=== PATIENT | male | born 1955 | race Caucasian/White ===

== ENCOUNTER 2021-01-10 12:15 | Inpatient (IN) ==
[2021-01-10 15:39] LABS: ABS Monocytes 0.3 10^3/ul (0-0.8); ABS Neutrophils 8.2 10^3/ul (1.5-7.7); Eosinophil % 0.2 %; Hematocrit 48 % (42-52); Hemoglobin 16.9 g/dL (14.0-18.0); Mean Corpuscular HGB Conc 36 g/dL (31-36); Mean Corpuscular Hemoglobin 32 pg (27-31); Mean Corpuscular Volume 91 fL (80-94); Mean Platelet Volume 8.4 fL (7.4-10.4); Platelet Count 289 10^3/uL (150-450); Red Blood Count 5.26 10^6 /uL (4.18-5.48); Red Cell Distribution Width 12 % (10-15); White Blood Count 9.5 10^3/uL (3.5-10.8)
[2021-01-10 15:59] LABS: ALT 18 U/L (7-52); AST 21 U/L (13-39); Albumin/Globulin Ratio 1.3 (1-3); Alkaline Phosphatase 66 U/L (35-149); Anion Gap 10 mmol/L (2-11); Blood Urea Nitrogen 20 mg/dL (6-24); CO2 Carbon Dioxide 25 mmol/L (22-32); Calcium 10.6 mg/dL (8.6-10.3); Chloride 101 mmol/L (101-111); Glucose 97 mg/dL (70-100); Potassium 4.2 mmol/L (3.5-5.0); Sodium 136 mmol/L (135-145)
[2021-01-10 16:04] LABS: Troponin I 0.08 ng/mL (<0.03)
[2021-01-10] MEDS ORDERED: Iohexol 350 (CONTRAST) 500 ML MDV IV ONE (16:43)
[2021-01-10 16:50] LABS: Rapid COVID-19 Molecular Undetected (Undetected)
[2021-01-10] MEDS ORDERED: Enoxaparin 80 MG/0.8 ML SYR SUBCUT ONE (17:24)
[2021-01-10 19:33] LABS: Activated Partial Thrombo Time 30.8 seconds (26.0-38.0); INR 1.12 (0.86-1.15)
[2021-01-11 06:52] LABS: Anion Gap 12 mmol/L (2-11); Blood Urea Nitrogen 18 mg/dL (6-24); CO2 Carbon Dioxide 23 mmol/L (22-32); Calcium 9.7 mg/dL (8.6-10.3); Chloride 104 mmol/L (101-111); Glucose 87 mg/dL (70-100); Potassium 4.3 mmol/L (3.5-5.0); Sodium 139 mmol/L (135-145)
[2021-01-11 08:13] LABS: Troponin I 0.06 ng/mL (<0.03)
[2021-01-12 11:28] VITALS: BP 138/92
== END 2021-01-12 12:45 | disposition home or self-care (01) | DRG 176 ==
LOC: ED 12:15 → EDHOLD 21:00 → MED 01-12 00:31
PROVIDERS: ADMIT Student in an Organized Health Care Education/Training Program; ATTEND Student in an Organized Health Care Education/Training Program